=== PATIENT | female | born 1995 | race African-American/Black ===

== ENCOUNTER 2017-01-30 17:51 | Emergency (ER) | payer OTHER ==
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
== END 2017-01-30 17:52 | disposition home or self-care (01) ==
LOC: CFTX 17:51
DX: S80.12XA Contusion of left lower leg, initial encounter (principal); V49.40XA Driver injured in collision with unspecified motor vehicles in traffic accident, initial encounter; Y92.410 Unspecified street and highway as the place of occurrence of the external cause
CPT/HCPCS: 73552; 99283